=== PATIENT | female | born 1975 | race African-American/Black ===

== ENCOUNTER 2019-06-15 20:12 | Inpatient (IN) | payer SELFPAY ==
[2019-06-15] MEDS ORDERED: methylPREDNISolone NA SUCC 125 MG/2 ML VIAL ONE (20:17)
[2019-06-15] MEDS ORDERED: ALBUTEROL SO4 2.5/IPRATROPIUM 0.5 INH SOL 3 ML VIAL.NEB. NEB ONE (20:17)
[2019-06-15] MEDS ORDERED: MAGNESIUM SULF 50% (8.12 MEQ/2 ML-1 GM VIAL) IVPB ONE ×2 (20:20→20:30)
--- NOTE | 2019-06-15 20:22 | PDOC ---
Attending Attestation - Resident Resident Name: Sarah Mtaias - ED Attending Attestation I have performed the following: I have examined & evaluated the patient, The case was reviewed & discussed with the resident, I agree w/resident's findings & plan, Exceptions are as noted - HPI HPI: 06/15/19 22:42 Ms. Bolaños is a 43 yo F who presents to the ER via EMS secondary to shortness of breath Pt is clearly gravid History is obtained from the patient and her 22 year old daughter Pt recently found out that she is (between 1 and 2 weeks ago) She has noted lower extremity edema for WEEKS She has noted dyspnea on exertion and dizziness with standing TODAY she noted significant shortness of breath and congestion She has had a cough today and had severe difficulty breathing which prompted her to call EMS Upon their arrival, pt was given Albuterol which slightly improved her symptoms Pt transported to the ER - Physicial Exam PE: 06/15/19 21:01 GENERAL: The patient is in respiratory distress, HYPOXIC, TACHYPNEIC, DIAPHORETIC. HEAD: Normal EYES: PERRLA, EOMI, sclera anicteric, conjunctiva clear. ENT: Ears normal, nares patent, oropharynx clear without exudates. Dry mucous membranes. NECK: Normal range of motion, (+) JVD LUNGS: Rales/Crackles bilaterally HEART: Tachycardiac, no murmur appreciated ABDOMEN: Gravid abdomen, non tender Torres placed EXTREMITIES: (+) bilateral pitting edema NEUROLOGICAL: Cranial nerves II through XII grossly intact. Normal speech. No focal neurological deficits. no brisk reflexes MUSCULOSKELETAL: Back non-tender to palpation SKIN: No rashes seen 06/15/19 22:49 - Critical Care Time Total Critical Care Time: 180 Critical Care Statement: The care of this patient involved high complexity decision making to prevent further life threatening deterioration of the patient 's condition and/or to evaluate & treat vital organ system(s) failure or risk of failure. - Medical Decision Making 06/15/19 20:21 CALL PLACED TO L&D CASE REVIEWED WITH DR LUCAS Recommends: Bedside US to determine gestational age of fetus Orders placed Call placed to US for bedside US Attempting to obtain IV Mag ordered Will do Nitroglycerin as this is recommended in Acute Pulmonary Edema BIPAP initiated immediately DD in this patient includes: Pre ecclampsia, Cardiomyopathy, Acute Pulmonary Edema 06/15/19 21:[address] LUCAS is bedside to see this patient Shortness of breath and oxygenation vastly improved on BiPAP (100% O2 saturation ) Pt started on Nitroglycerin drip - started at 10mcg/kg/min, given a bolus of 200mcg with SBP improvement to 140s 06/15/19 21:23 Attempted to transfer this patient Case reviewed with Dr. Uribe He has reviewed this case with Dr Lucas He is refusing to accept this patient in transfer at this time Will admit to Dr Lucas She is requesting Labetolol instead of Nitroglycerine Torres cathether placed Call placed to Pharmacy to make Labetolol drip Anesthesia en route to see this patient in the ER May give Nitroprusside Awaiting their recommendation 06/15/19 21:[address] [facility] Dr. Lucas states pt just needs to be taken to the OR emergently Cancel transfer to OSH 06/15/19 21:49 Nitroprusside up from pharmacy Will hang it now Anesthesia bedside, he is placing an A line BP remains elevated Nitroprusside being titrated up 06/15/19 22:26 A line obtained Nitroprusside being titrated SBP 140s Nursing supervisor assembly room bedside States that patient should be transferred Call placed to [facility] (Again) Awaiting call from OB 06/15/19 22:33 MEDICATIONS GIVEN THUS FAR: NITROGLYCERINE BOLUS 200mcg and Drip at 10 mcg/min (x 30 minutes) LABETOLOL 20mg IV x 2 NITROPRUSSIDE started at 0.5mcg/kg/min titrated up to 2 mcg/kg/min MAGNESIUM 4gm IVPB MAGNESIUM DRIP CURRENTLY RUNNING: NITROPRUSSIDE 2mcg/kg/min NITROGLYCERINE 10 mcg/min CONSENT FOR C SECTION OBTAINED CONSENT FOR BLOOD OBTAINED 06/15/19 22:38 INTAKE: 250 cc (from MAgnesium) OUTPUT: 250 cc Urine 06/15/19 23:[address] Rowe, updates given Call placed to ICU Taken to OR Discharge - Discharge Information Problems reviewed: Yes Clinical Impression/Diagnosis: Hypertension affecting in third trimester Congestive heart failure Qualifiers: Heart failure type: unspecified Heart failure chronicity: unspecified Qualified Code(s): I50.9 - Heart failure, unspecified Pre-eclampsia Qualifiers: Trimester: third trimester Qualified Code(s): O14.93 - Unspecified pre- eclampsia, third trimester Condition: Guarded Disposition: TRANSFER ACUTE CARE/OTHER HOSP - Admission Yes - Follow up/Referral - Patient Discharge Instructions - Post Discharge Activity
[2019-06-15] MEDS ORDERED: LABETALOL HCL 5 MG/1 ML (100MG/20 ML VIAL) IVPUSH ONE ×3 (20:26→21:37)
[2019-06-15] MEDS ORDERED: RAPID SEQUENCE INTUBATION KIT NR ONE (20:27)
[2019-06-15] MEDS ORDERED: MAGNESIUM SULFATE 20GM/500ML - 20 GM/500 ML INFUS.BAG IVPB SCH (20:30)
[2019-06-15] MEDS ORDERED: NITROPRUSSIDE SODIUM 50,000 MCG in DEXTROSE 5%-WATER - 248 ML IVPB SCH ×2 (20:30→21:30)
[2019-06-15] MEDS ORDERED: NITROGLYCERIN 25MG/D5W 250ML 25 MG/250 ML ML IVPB ONE (20:30)
[2019-06-15] MEDS ORDERED: MAGNESIUM 4GM/H20 - 4 GM/100 ML IVPB IVPB SCH (20:30)
[2019-06-15] MEDS ORDERED: MAGNESIUM SULFATE IN WATER 2 GM/50 ML IVPB IVPB ONE (20:31)
[2019-06-15 20:39] LABS: BASO % 3.4 % (0-2.0); HEMATOCRIT 40.4 % (32.4-45.2); HEMOGLOBIN 12.8 GM/dL (10.7-15.3); LYMPH % 45.7 % (8-40); MCH 26.1 pg (25.7-33.7); MCHC 31.7 g/dl (32.0-36.0); MEAN CELL VOLUME 82.5 fl (80-96); MEAN PLT VOLUME 11.9 fl (7.5-11.1); MONO % 8.4 % (3.8-10.2); NEUT % 42.5 % (42.8-82.8); PLATELET COUNT 146 K/MM3 (134-434); RDW 25.6 % (11.6-15.6); WHITE BLOOD COUNT 8.9 K/mm3 (4.0-10.0)
[2019-06-15 20:51] VITALS: BMI 36.6
[2019-06-15 20:51] LABS: INR 0.87 (0.83-1.09); PROTHROMBIN TIME (PATIENT) 10.3 SEC (9.7-13.0)
[2019-06-15] MEDS ORDERED: NITROGLYCERIN 25MG/D5W 250ML 25 MG/250 ML ML IVPB SCH ×2 (21:00→22:30)
--- NOTE | 2019-06-15 21:02 | PDOC ---
History of Present Illness - General Chief Complaint: Respiratory Stated Complaint: DIFFICULTY BREATHING - History of Present Illness Initial Comments: Nini Bolaños is a 43yo woman with no known medical problems who was BIBA for acute onset of SOB at home. Per EMS, the pt was hypertensive to the 200/100's and hypoxic with sats in the 70's. They report that she is visibly but the pt did not realize she was until recently and has not received any care. The pt's daughter, Krissy, who arrived following the ambulance reports that she was first aware her mother was about a week ago. She says that her mother has been complaining of leg swelling, worsening back cramping, and worsening dizziness with standing for several weeks. The daughter confirms that the pt has not had any care, does not take vitamins, does not have any medical conditions or home medications, and does not drink, smoke, or use drugs that the daughter is aware of. Past History - Past Medical History Allergies/Adverse Reactions: Allergies Allergy/AdvReac Type Severity Reaction Status Date / Time almond Allergy Verified 06/15/19 20:28 Home Medications: Ambulatory Orders NK [No Known Home Medication] 06/15/19 - Psycho Social/Smoking Cessation Hx Smoking History: Unknown if ever smoked Have you smoked in the past 12 months: No Information on smoking cessation initiated: No Hx Alcohol Use: No Drug/Substance Use Hx: No Review of Systems - Review of Systems Comments:: Could not obtain 2/2 respiratory distress *Physical Exam - Vital Signs Last Vital Signs Temp Pulse Resp BP Pulse Ox 98.9 F 119 H 38 H 213/145 H 94 L 06/15/19 20:37 06/15/19 20:37 06/15/19 20:37 06/15/19 20:37 06/15/19 20:37 - Physical Exam General: Very uncomfortable, in respiratory distress HEENT: Atraumatic, PERRL, EOMI, MMM Cards: Tachycardic, no murmur appreciated Pulm: Tachypnic, hypoxic on RA, labored breathing, accessory muscle use, crackles in b/l bases Abd: Gravid near term, nontender : No vaginal bleeding. Vaginal exam deferred to OB Ext: Atraumatic. 2+ LE edema. ROM intact. Moves all extremities. WWP Skin: Normal color, no rashes or lesions Neuro: Awake, answers some yes/no questions, CN grossly intact, motor/sensory grossly intact and symmetric ED Treatment Course - LABORATORY CBC & Chemistry Diagram: 06/16/19 01:15 06/16/19 01:15 - ADDITIONAL ORDERS Additional order review: Laboratory Results 06/15/19 06/15/19 20:28 20:28 PT with INR 10.30 INR 0.87 Anti-A Titer Cancelled Blood Type Cancelled Antibody Screen Cancelled 06/15/19 20:28 RBC 4.90 MCV 82.5 MCHC 31.7 L RDW 25.6 H MPV 11.9 H Neutrophils % 42.5 L Lymphocytes % 45.7 H Monocytes % 8.4 Eosinophils % 0.0 Basophils % 3.4 H - Medications Given in the ED: ED Medications Discontinued Medications Generic Name Dose Route Start Last Admin Trade Name Freq PRN Reason Stop Dose Admin Labetalol HCl 20 mg 06/15/19 20:26 06/15/19 20:30 Normodyne Injection - IVPUSH 06/15/19 20:27 Not Given ONCE ONE Magnesium Sulfate 2 gm 06/15/19 20:20 06/15/19 20:15 Magnesium Sulfate IVPB 06/15/19 20:21 2 gm ONCE ONE Administration Magnesium Sulfate 2 gm 06/15/19 20:30 06/15/19 20:43 Magnesium Sulfate IVPB 06/15/19 20:31 2 gm ONCE ONE Administration Medical Decision Making - Medical Decision Making 06/15/19 20:55 Nini Bolaños is a 43yo woman, currently near term w/ no care, otherwise with no known medical problems who was BIBA for acute onset of SOB at home, HTN to 200/100's, noted to be tachypnic and hypoxic to the 70's on EMS arrival. Her daughter reports that the pt has been c/o worsening leg swelling, dizziness with standing, and back pain for several weeks. The daughter also reports that - Concerning for pre-eclampsia, HTN emergency - OB called on pt arrival as visibly . - US tech to bedside for ultrasound; Estimated gestation 37wks, wt 3100, FHR 165 - Pt with continued hypoxia to 70's on RA, BiPAP ordered emergently - CBC, CMP, coags, UA, UCx, T&S - POCUS lung/cardiac exam completed by Dr Abdul. B-lines diffusely. Small pericardial effusion - Nitro drip for pulm edema and HTN 06/15/19 21:21 - Seen by Dr Rosas. Recommending transfer for high-risk - Spoke to Dr Uribe (OB) at [place]. Refuses transfer as pt is unstable. Recommending emergent delivery - Labs pending - Pt now more alert, BP 170/130's 06/15/19 21:43 - OB called for evaluation 06/15/19 21:58 - BP 189/135 - A-line being placed by anesthesia for BP monitoring - Plan for emergent delivery as soon as BP is controlled - Nitroprusside drip started per anesthesia and OB recommendations. Initially 0.5mcg/kg/min. Will titrate to SBP under 160 06/15/19 22:24 - BP still 170-180's/100 on nitroprusside drip at 2.5mcg/kg/min and 1.5cc bolus - Will restart nitroglycerine drip at 10/min 06/15/19 22:36 - SBP now in 140's - Will admit to Dr Rosas for emergent Seen and discussed with Dr Kike Matias PGY2 Discharge - Discharge Information Problems reviewed: Yes Clinical Impression/Diagnosis: Hypertension affecting in third trimester Congestive heart failure Qualifiers: Heart failure type: unspecified Heart failure chronicity: unspecified Qualified Code(s): I50.9 - Heart failure, unspecified Pre-eclampsia Qualifiers: Trimester: third trimester Qualified Code(s): O14.93 - Unspecified pre- eclampsia, third trimester Condition: Guarded - Admission Yes - Follow up/Referral - Patient Discharge Instructions - Post Discharge Activity
--- NOTE | 2019-06-15 21:16 | HP ---
Past Medical History - Primary Care Physician PCP:: Arminda Rosas - Admission Chief Complaint: 43 yrs , no care brought by EMS with in ER c/o SOB , high BP 200/130 ,. no care pt is found to be in congedtive heart failure History of Present Illness: history obtained from her daughter pt c/o to her daughter about sob , she called ambulence she has been c/o headache on & off for 2 days sometimes she was c/o dizziness No care prior , LD 08/2015 home delivery , pt was taken to [facility] , she was in the hosp for 2-3 days no care during last also first pregn 01/1997 , 24 yrs ago pt does not go to the doctor for any medical care History Source: Patient, Medical Record Limitations to Obtaining History: No Limitations - Past Medical History FOOD CRITIC: No: Seizure Cardiovascular: Yes: HTN, Other (unknown) Pulmonary: Yes: Other (unknown) ...: 3 ...Para: 2 (G1 01/1997. G2 08/2015 ) ...Term: 2 Heme/Onc: Yes: Other (not known) Infectious Disease: Yes: Other (not known) Psych: Yes: Other (not known) Musculoskeletal: Yes: Other (not known) Endocrine: Yes: Other (not known) - Past Surgical History Past Surgical History: Yes: None Hx Myomectomy: No Hx Transabdominal Cerclage: No - Smoking History Smoking history: Unknown if ever smoked Have you smoked in the past 12 months: No - Alcohol/Substance Use Hx Alcohol Use: No Home Medications - Allergies Allergies/Adverse Reactions: Allergies Allergy/AdvReac Type Severity Reaction Status Date / Time almond Allergy Verified 06/15/19 20:28 - Home Medications Home Medications: Ambulatory Orders NK [No Known Home Medication] 06/15/19 Physical Exam - Maternity Vital Signs: Vital Signs Temperature 98.9 F 06/15/19 20:37 Pulse Rate 119 H 06/15/19 20:37 Respiratory Rate 38 H 06/15/19 20:37 Blood Pressure 213/145 H 06/15/19 20:37 O2 Sat by Pulse Oximetry (%) 94 L 06/15/19 20:37 Constitutional: Yes: Diaphoresis, Severe Distress HENT: Yes: WNL Neck: Yes: WNL Cardiovascular: Yes: WNL Lungs: Other (sob diaphoretic' bilateral rales) Breast(s): Yes: Other (nort examined) - Abdominal Exam/OB Fundal Height: 37 Number of Fetuses: Single Presentation: Vertex Contractions: No Monitor Mode: External Heart Rate (range): 160 Heart Rate Location: Midline Category: II (non reactive) Accelerations: None Decelerations: None - Vaginal Exam/OB Vaginal Bleediing: No Dilatation (cm): close Effacement (%): uneface Presentation: Vertex/Position Station: -4 - Physical Exam Extremities: Yes: Other (varicose veins prominent on inner thighs both extremities cold in lower trhird of legs & feet). No: Calf Tenderness Edema: LLE: 2+, RLE: 2+ Integumentary: Yes: Venous Stasis Changes, Other (Rt side large 3cm nodule firm , hyperpigmented , round , raised above skin) Deep Tendon Reflex Grade: Normal +2 - Labs Lab Results: CBC, BMP 06/15/19 20:28 Laboratory Tests 06/15/19 06/15/19 06/15/19 20:28 20:28 21:06 PT with INR 10.30 INR 0.87 Sodium 140 Potassium 4.5 Chloride 108 H Carbon Dioxide 19 L Anion Gap 13 Creatinine 1.3 Random Glucose 184 H Calcium 8.7 AST 41 H ALT 20 Alkaline Phosphatase 181 H Creatine Kinase 225 H Urine Protein 4+ H Urine Blood 2+ H Laboratory Tests 06/15/19 06/15/19 21:06 21:23 Opiates Screen Negative Methadone Screen Negative Barbiturate Screen Negative Ur Amphetamines Screen Negative MDMA (Ecstasy) Screen Negative Benzodiazepines Screen Negative Cocaine Screen Negative U Marijuana (THC) Screen Negative Blood Type A POSITIVE Antibody Screen Negative Problem List - Problems (1) 37 weeks gestation of Code(s): Z3A.37 - 37 WEEKS GESTATION OF (2) Hypertension affecting in third trimester Code(s): O16.3 - UNSPECIFIED MATERNAL HYPERTENSION, THIRD TRIMESTER (3) Hypertensive urgency Code(s): I16.0 - HYPERTENSIVE URGENCY (4) Pre-eclampsia Code(s): O14.90 - UNSPECIFIED PRE-ECLAMPSIA, UNSPECIFIED TRIMESTER Qualifiers: Trimester: third trimester Qualified Code(s): O14.93 - Unspecified pre- eclampsia, third trimester (5) Congestive heart failure Code(s): I50.9 - HEART FAILURE, UNSPECIFIED Qualifiers: Heart failure type: unspecified Heart failure chronicity: unspecified Qualified Code(s): I50.9 - Heart failure, unspecified (6) No care in current Code(s): O09.30 - SUPRVSN OF PREG W INSUFFICIENT ANTENAT CARE, UNSP TRIMESTER (7) AMA (advanced maternal age) multigravida 35+ Code(s): O09.529 - SUPERVISION OF ELDERLY MULTIGRAVIDA, UNSPECIFIED TRIMESTER Assessment/Plan bP control followed by delivery by prinary c/section [facility] called , refused transfer due to unstable condition . Hypeertension management as per ED , labetalol 20 mg iv push x2, followed by Nitrogglyceride followed by NItropruside MgSo4 4 gm followed by 2gm/hr given stablize BP deliver by c/section . pt understands , signed consent for c/s . keep pt on monitor in ED us by bed side 37 weeks di bains, efw 3113 gn post delivery transfer the pt to ICU
[2019-06-15 21:20] LABS: EPI CELLS 1.7 /HPF (0-5/HPF); HYALINE CASTS 22 /lpf (0-8); URINE APPEARANCE CLOUDY; URINE BACTERIA 38.5 /hpf (NEGATIVE); URINE BILIRUBIN NEGATIVE (NEGATIVE); URINE COLOR YELLOW; URINE GLUCOSE (UA) TRACE (NEGATIVE); URINE KETONE NEGATIVE (NEGATIVE); URINE LEUK ESTERASE NEGATIVE (NEGATIVE); URINE NITRITE NEGATIVE (NEGATIVE); URINE PROTEIN 4+ (NEGATIVE)
[2019-06-15 21:24] LABS: ALBUMIN 1.6 g/dl (3.4-5.0); BILIRUBIN,TOTAL 0.3 mg/dL (0.2-1); BLOOD UREA NITROGEN 13.6 mg/dL (7-18); CALCIUM 8.7 mg/dL (8.5-10.1); CREATININE 1.3 mg/dL (0.55-1.3); POTASSIUM 4.5 mmol/L (3.5-5.1); TOT PROT 6.2 g/dl (6.4-8.2)
[2019-06-15 21:25] LABS: COCAINE, UR NEGATIVE ng/ml (CUTOFF=300); METHADONE, UR NEGATIVE ng/ml (CUTOFF=300); OPIATES, URI NEGATIVE ng/ml (CUTOFF=300); PHENCYCLIDINE,URINE NEGATIVE ng/ml (CUTOFF=25); URINE AMPHETAMINES NEGATIVE ng/ml (CUTOFF=500); URINE BARBITURATES NEGATIVE ng/ml (CUTOFF=200); URINE BENZODIAZEPINES NEGATIVE ng/ml (CUTOFF=200)
[2019-06-15 22:29] LABS: ANISOCYTOSIS 3+; MACROCYTOSIS 2+; OVALOCYTE 1+; PLATELET ESTIMATE NORMAL
[2019-06-15] MEDS ORDERED: PROPOFOL 20 ML ONE (22:49)
[2019-06-15] MEDS ORDERED: SUCCINYLCHOLINE CHLORIDE 200 MG/10 ML SYRINGE ONE (22:50)
[2019-06-15] MEDS ORDERED: LIDO 2%/EPI 1:200000 PRESRVFRE (20 ML SDVIAL) ONE (22:54)
[2019-06-15] MEDS ORDERED: BUPIVACAINE HCL/PF 0.5% (5 MG/ML) 30 ML VIAL IJ ONE (22:54)
--- NOTE | 2019-06-15 23:37 | CONSULT ---
Consult Consult Specialty:: Nephrology Reason for Consultation:: HTN - History of Present Illness Chief Complaint: shortness of breath History of Present Illness: Pt is a 43 year old female who presents to the ER with shortness of breath. She recently found out that was about a week ago. She did not have any care. Her last was in 2016 and was a home delivery without care as well. She was found to be hypertensive. She also complained of lower ext edema. She was given albuterol by ems which helped her symptoms initially. In the ER she was put on a nitro drip, nitroprusside, magnesium and was given labetolol pushes. Tertiary care center was called for transfer and rejected the case. Pts blood pressure had improved. She was taken to the OR for urgent . Pt was intubated in the OR. Her blood pressure was labile intra-op. I was called to assist with bp management. I saw pt in ICU after all events noted. - History Source History Provided By: Family Member, Medical Record - Past Medical History YARN SIZER: No: Seizure Cardio/Vascular: Yes: HTN - Past Surgical History Past Surgical History: Yes: None - Alcohol/Substance Use Hx Alcohol Use: (Unknown) - Smoking History Smoking history: Unknown if ever smoked Have you smoked in the past 12 months: No Home Medications - Allergies Allergies/Adverse Reactions: Allergies Allergy/AdvReac Type Severity Reaction Status Date / Time almond Allergy Verified 06/15/19 20:28 - Home Medications Home Medications: Ambulatory Orders NK [No Known Home Medication] 06/15/19 Family Medical History Family History: Unable to Obtain Review of Systems Unable to obtain ROS, reason: pt intubated Physical Exam Vital Signs: Vital Signs Temperature 98.9 F 06/15/19 20:37 Pulse Rate 85 06/15/19 22:00 Respiratory Rate 36 H 06/15/19 21:10 Blood Pressure 189/135 H 06/15/19 22:00 O2 Sat by Pulse Oximetry (%) 99 06/15/19 21:10 Constitutional: Yes: Calm Eyes: Yes: Conjunctiva Clear HENT: Yes: Atraumatic Cardiovascular: Yes: S1, S2 Respiratory: Yes: Intubated, Mechanically Ventilated, Rhonchi Gastrointestinal: Yes: Other (dressing in place) Renal/: Yes: Torres Present Musculoskeletal: Yes: WNL Edema: Yes Edema: LLE: 2+, RLE: 2+ Neurological: Yes: Lethargy Labs: CBC, BMP 06/15/19 20:28 06/15/19 20:28 Laboratory Tests 06/15/19 06/15/19 20:28 21:06 Creatinine 1.3 Albumin 1.6 L Urine Protein 4+ H Urine Blood 2+ H Problem List - Problems (1) Hypertensive urgency Code(s): I16.0 - HYPERTENSIVE URGENCY (2) Proteinuria Code(s): R80.9 - PROTEINURIA, UNSPECIFIED (3) Proteinuria affecting in third trimester Code(s): O12.13 - GESTATIONAL PROTEINURIA, THIRD TRIMESTER (4) Pre-eclampsia Code(s): O14.90 - UNSPECIFIED PRE-ECLAMPSIA, UNSPECIFIED TRIMESTER Qualifiers: Trimester: third trimester Qualified Code(s): O14.93 - Unspecified pre- eclampsia, third trimester Assessment/Plan Current Medications Generic Name Dose Route Start Last Admin Trade Name Freq PRN Reason Stop Dose Admin Magnesium Sulfate 20 gm in 500 mls @ 25 mls/hr 06/15/19 20:30 06/15/19 20:15 Magnesium Sulfate 20gm/500ml - IVPB 25 mls/hr ASDIR RONALD Administration Labetalol HCl 1,000 mg/ 1,000 mls @ 60 mls/hr 06/15/19 21:30 Dextrose IV TITR RONALD 1 MG/MIN Sodium Nitroprusside 50,000 250 mls @ 14.96 mls/hr 06/15/19 21:30 06/15/19 22 :00 mcg/ Dextrose IVPB 0.38 mcg/kg/min TITR RONALD 11.6 mls/hr Administration Protocol 0.5 MCG/KG/MIN Nitroglycerin/Dextrose 25 mg in 250 mls @ 6 mls/hr 06/15/19 22:30 06/15/19 22 :35 Nitroglycerin 25mg/D5w 250ml IVPB 10 mcg/min TITR RONALD 6 mls/hr Administration 10 MCG/MIN Impression 1. pre-ecclampsia 2. htn 3. 4. proteinuria 5. elevated troponin 6. volume overload 7. resp failure requiring intubation Plan - agree with ICU monitoring - pt will be started on labetolol drip - cont bp monitoring via a-line - avoid hypotension - discussed with ICU team, they will manage bp - lasix for fluid overload - check cxr - ICU team to call [facility] to evaluate for transfer - monitor renal function - repeat ua in am - repeat prt to secondary teacher ratio - cont mag drip - trend cardiac enzymes - cardio eval - medical eval - monitor urine output - check formal echo - vent support
[2019-06-15] MEDS ORDERED: VECURONIUM BROMIDE 10 MG VIAL ONE (23:46)
[2019-06-15] MEDS ORDERED: ePHEDrine SULFATE 50 MG/1 ML AMPULE ONE (23:52)
[2019-06-16] MEDS ORDERED: ceFAZolin SODIUM 1 GM VIAL IVPB ONE (00:04)
[2019-06-16] MEDS ORDERED: ceFAZolin SODIUM 1 GM VIAL ONE ×2 (00:05→02:24)
[2019-06-16] MEDS ORDERED: MIDAZOLAM HCL 2 MG/2 ML SINGLE DOSE VIAL ONE ×3 (00:27)
[2019-06-16] MEDS ORDERED: OXYTOCIN 10 UNITS/ML VIAL ONE (00:31)
[2019-06-16] MEDS ORDERED: ACETAMINOPHEN 325 MG TABLET (FP) PO PRN (00:50)
[2019-06-16] MEDS ORDERED: BENZOCAINE 28 GM HEMORRHOIDAL OINTMENT TP PRN (00:50)
[2019-06-16] MEDS ORDERED: oxyCODONE HCL 5 MG TABLET PO PRN ×2 (00:50)
[2019-06-16] MEDS ORDERED: BENZOCAINE 20% 57 GM BOTTLE TP PRN (00:50)
[2019-06-16] MEDS ORDERED: SIMETHICONE 80 MG TAB.CHEW (FP) PO PRN (00:50)
[2019-06-16] MEDS ORDERED: ACETAMINOPHEN 1000 MG/100 ML VIAL (NON FORMULARY) IVPB PRN (00:54)
[2019-06-16] MEDS ORDERED: OXYTOCIN 20 UNITS in 0.9% NS 20 UNIT/1,000 ML INFUS.BAG IV SCH (01:00)
[2019-06-16] MEDS ORDERED: FUROSEMIDE 40 MG/4 ML INJECTABLE VIAL ONE (01:04)
[2019-06-16] MEDS ORDERED: LABETALOL HCL 5 MG/1 ML (100MG/20 ML VIAL) IVPUSH ONE (01:04)
[2019-06-16] MEDS ORDERED: LABETALOL HCL 5 MG/1 ML (100MG/20 ML VIAL) ONE (01:04)
--- NOTE | 2019-06-16 01:20 | PN ---
Delivery - Delivery Section: Primary, Low Flap Transverse (37 weeks , Hypertensive emergency , preclempsia , ccf) Type of Anesthesia: General Episiotomy/Laceration: None EBL (cc): 900 (intra op 50 ml urine ) Delivery, Single - Stages of Labor Date of Delivery: 06/15/19 Time of Delivery: 23:42 Time Placenta Delivered: 23:45 Placenta: Yes: Manual Removal, Uterine Exploration (large uterus with fibroids) - Condition of Infant Validation Software Facilitator/Certified Dental Assistant Present: Yes Name: Letitia Gooden Infant Gender: Female Weight: 6 lb Total Hours ROM (Hrs/Mins): 3min meconium - 1 Minute Total Score: 2 5 Minutes Total Score: 2 10 Minutes Total Score: 6 15 Minutes Total Score: 7 Remarks - Remarks Remarks: 43 yrs , no care presented with sob, pregn known , 37 weeks by bed side us pt managed by ED for hypertnsive emergency with preclempsia on IV Nitroglyceride , followed by IV Notroprusied MgSo4 IV 4gm loading dose followed by 2gm/hr A line placed by anesthesiologist 2 gm iv ancef intraop given pt transferred to ICU BP management by [facility] Dr Soledad Jackson , on iv labetalol drip IV MgSo4 post op will be started Selected Entries 06/16/19 01:25 Temperature 97.2 F L Pulse Rate 71 Pulse Rhythm [ Regular Both Dorsalis Pedis] Respiratory 16 Rate Respiratory Mechanically Effort Ventilated Blood Pressure 148/100 O2 Sat by Pulse 100 Oximetry (%) Oxygen Delivery Endotracheal Method tube Weight 220 lb 2.00 AM : pt is sedated , intubated , on ventilator for resp support O2 sat 96 % , Pulse 81, BP 143/103 u/output 50ml/hr i/o 1050/900 ct management as per icu attempting to transfer care to tertiary center
--- NOTE | 2019-06-16 01:25 | OP ---
Operative Note - Note: Operative Date: 06/15/19 Pre-Operative Diagnosis: 37 weeks, hypertensive emergency, preclempsia Operation: primary lftc/s Findings: baby born 23.42 hr 06/15/19 , lot position, AF moderatelly thick , girl , 2 /2--6/7 wt 6lbs huge large ut with fibroids both tubes & ovaries normal Dr Dong present in OR Surgeon: Arminda Rosas Front End Wheel Loader Operator: Carlos A Wagner Anesthesiologist/ELECTRICAL REPAIRER: Anisa Chong Anesthesia: General Specimens Removed: cord segment for cord gas. cord blood. placenta Estimated Blood Loss (mls): 900 Drains, Volume Out (mls): 50 (walter out put ) Fluid Volume Replaced (mls): 900 (2 gm iv ancef ) Operative Report Dictated: Yes
[2019-06-16] MEDS ORDERED: PROPOFOL 1,000,000 MCG/100 ML VIAL ONE (01:38)
[2019-06-16 01:45] LABS: ARTERIAL BLD GAS O2 SATURATION 90.9 % (95-98); ARTERIAL BLOOD GAS BASE EXCESS -8.6 meq/l (-2-2)
[2019-06-16] MEDS: LABETALOL HCL INJECTION 1,000 MG in DEXTROSE 5%-WATER - 800 ML IV SCH ×2 (01:45→04:32)
[2019-06-16] MEDS ORDERED: PROPOFOL 1,000,000 MCG/100 ML VIAL IVPB SCH (01:45)
[2019-06-16 01:54] LABS: HEMATOCRIT 35.6 % (32.4-45.2); HEMOGLOBIN 11.1 GM/dL (10.7-15.3); MCHC 31.3 g/dl (32.0-36.0); MEAN CELL VOLUME 83.2 fl (80-96); MEAN PLT VOLUME 11.7 fl (7.5-11.1); PLATELET COUNT 106 K/MM3 (134-434); RBC 4.28 M/mm3 (3.60-5.2); RDW 25.3 % (11.6-15.6); WHITE BLOOD COUNT 16.3 K/mm3 (4.0-10.0)
[2019-06-16] MEDS ORDERED: MAGNESIUM SULFATE 20GM/500ML - 20 GM/500 ML INFUS.BAG IVPB SCH (02:00)
[2019-06-16] MEDS ORDERED: CEFAZOLIN 1 GM in DEXTROSE 5%-WATER - 50 ML IVPB SCH (02:00)
[2019-06-16 02:09] LABS: INR 0.89 (0.83-1.09); PROTHROMBIN TIME (PATIENT) 10.5 SEC (9.7-13.0)
--- NOTE | 2019-06-16 02:10 | CONSULT ---
Consult Consult Specialty:: Pulmonary critical care Reason for Consultation:: preeclampsia, hypoxic respiratory failure - History of Present Illness Chief Complaint: SOB, cough, LE edema History of Present Illness: This is a 43 yo woman who presented to the ED w/ severe SOB and LE edema. She was found to be preeclamptic w/ SBP 220s now s/p transferred to ICU for continued care. 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 She has received no care. He has two other children one 22yo and another 2yo. On the day of ED admission she developed worsening SOB w/ cough prompting activation of EMS. In the ED OB was consulted (Dr. Lamb). There was an attempt to transfer patient to [facility] ([facility]) but given the instability of the patient she was denied. She was placed on nitroprusside drip for BP control. Arterial line was placed. SBP 220s. NIPPV placed for hypoxia. Labs w/ proteinuria. UTOX: negative. She was taken to the OR and a was performed under general anesthesia. She remained on nitroprusside w/ prn pushes of labetalol during the case. Post-op she was transferred to ICU. On arrival to ICU patient intubated and sedated. BP: 220s/140s. She was placed on ACVC 14/400/100 +5. AB.2/53/85. P:F 85. Pplat: 20. PEEP increased to 12. Exam notable for coarse crackles throughout lung saxena. Renal attending bedside. Lasix IVP given. STAT labs sent. I reached out to [facility] post-op given continued HTN and hypoxic respiratory failure. The case was accepted. Labetalol drip was started for BP control. Pt sedated w/ propofol. 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 Cardio/Vascular: Yes: HTN, Other (unknown) Pulmonary: Yes: Other (unknown) ...: (s/p c section) Infectious Disease: Yes: Other (not known) Psych: Yes: Other (not known) Musculoskeletal: Yes: Other (not known) Endocrine: Yes: Other (not known) - Past Surgical History Past Surgical History: Yes: None - Alcohol/Substance Use Hx Alcohol Use: No - Smoking History Smoking history: Unknown if ever smoked Have you smoked in the past 12 months: No Home Medications - Allergies Allergies/Adverse Reactions: Allergies Allergy/AdvReac Type Severity Reaction Status Date / Time almond Allergy Verified 06/15/19 20:28 - Home Medications Home Medications: Ambulatory Orders NK [No Known Home Medication] 06/15/19 Family Medical History Family History: Unable to Obtain Review of Systems Unable to obtain ROS, reason: intubation Physical Exam Vital Signs: Vital Signs Temperature 97.2 F L 06/16/19 01:25 Pulse Rate 100 H 06/16/19 01:49 Respiratory Rate 22 H 06/16/19 01:49 Blood Pressure 148/100 06/16/19 01:25 O2 Sat by Pulse Oximetry (%) 96 06/16/19 01:49 Constitutional: Yes: Other (Intubated and sedated w/o distress) Eyes: Yes: Conjunctiva Clear, PERRL Neck: Yes: Trachea Midline Cardiovascular: Yes: Regular Rate and Rhythm, S1, S2 Respiratory: Yes: Mechanically Ventilated, Rales (bilateral t/o all lung saxena) Gastrointestinal: Yes: Other (palpable uterus, surgical site c/d/i) ...Rectal Exam: Yes: Deferred Renal/: Yes: Torres Present, Vaginal Bleeding (mild bleeding noted) Edema: LLE: 1+, RLE: 1+ Wound/Incision: Yes: Clean/Dry, Dressing Dry and Intact Neurological: Yes: Other (RASS -4) Labs: ABG Results ABG pH 7.20 (7.35-7.45) L 06/16/19 01:20 ABG pCO2 at Pt Temp 53.0 mmHg (35-45) H 06/16/19 01:20 ABG pO2 at Pt Temp 85.0 mmHg (80-100) 06/16/19 01:20 ABG HCO3 19.8 mmol/L (22-27) L 06/16/19 01:20 ABG O2 Sat (Measured) 90.9 % (95-98) L 06/16/19 01:20 ABG O2 Content 19.0 % vol 06/16/19 01:20 ABG Base Excess -8.6 meq/l (-2-2) L 06/16/19 01:20 WBC 16.3 K/mm3 (4.0-10.0) H 06/16/19 01:15 RBC 4.28 M/mm3 (3.60-5.2) 06/16/19 01:15 Hgb 11.1 GM/dL (10.7-15.3) 06/16/19 01:15 Hct 35.6 % (32.4-45.2) 06/16/19 01:15 MCV 83.2 fl (80-96) 06/16/19 01:15 MCH 26.0 pg (25.7-33.7) 06/16/19 01:15 MCHC 31.3 g/dl (32.0-36.0) L 06/16/19 01:15 RDW 25.3 % (11.6-15.6) H 06/16/19 01:15 Plt Count 106 K/MM3 (134-434) L D 06/16/19 01:15 MPV 11.7 fl (7.5-11.1) H 06/16/19 01:15 Absolute Neuts (auto) 3.8 K/mm3 (1.5-8.0) 06/15/19 20:28 Neutrophils % 42.5 % (42.8-82.8) L 06/15/19 20:28 Lymphocytes % 45.7 % (8-40) H 06/15/19 20:28 Monocytes % 8.4 % (3.8-10.2) 06/15/19 20:28 Eosinophils % 0.0 % (0-4.5) 06/15/19 20:28 Basophils % 3.4 % (0-2.0) H 06/15/19 20:28 Nucleated RBC % 0 % (0-0) 06/15/19 20:28 Platelet Estimate Normal 06/15/19 20:28 Platelet Comment No clumping noted 06/15/19 20:28 Polychromasia 1+ 06/15/19 20:28 Anisocytosis 3+ 06/15/19 20:28 Macrocytosis 2+ 06/15/19 20:28 Ovalocytes 1+ 06/15/19 20:28 Sodium 140 mmol/L (136-145) 06/15/19 20:28 Potassium 4.5 mmol/L (3.5-5.1) 06/15/19 20:28 Chloride 108 mmol/L (98-107) H 06/15/19 20:28 Carbon Dioxide 19 mmol/L (21-32) L 06/15/19 20:28 Anion Gap 13 MMOL/L (8-16) 06/15/19 20:28 BUN 13.6 mg/dL (7-18) 06/15/19 20:28 Creatinine 1.3 mg/dL (0.55-1.3) 06/15/19 20:28 Est GFR (CKD-EPI)AfAm 59.01 06/15/19 20:28 Est GFR (CKD-EPI)NonAf 50.91 06/15/19 20:28 Random Glucose 184 mg/dL (74-106) H 06/15/19 20:28 Uric Acid 8.0 mg/dL (2.6-7.2) H 06/15/19 20:28 Calcium 8.7 mg/dL (8.5-10.1) 06/15/19 20:28 Total Bilirubin 0.3 mg/dL (0.2-1) 06/15/19 20:28 GGT 50 U/L (5-85) 06/15/19 20:28 AST 41 U/L (15-37) H 06/15/19 20:28 ALT 20 U/L (13-61) 06/15/19 20:28 Alkaline Phosphatase 181 U/L (45-117) H 06/15/19 20:28 Creatine Kinase 225 U/L (26-192) H 06/15/19 20:28 Creatine Kinase Index 1.2 % (0.0-5.0) 06/15/19 20:28 CK-MB (CK-2) 2.9 ng/mL (0.5-3.6) 06/15/19 20:28 Troponin I 0.20 ng/ml (0.00-0.05) H 06/15/19 20:28 Total Protein 6.2 g/dl (6.4-8.2) L 06/15/19 20:28 Albumin 1.6 g/dl (3.4-5.0) L 06/15/19 20:28 Beta HCG, Quant 77984.4 mIU/ml 06/15/19 20:28 Urine Test Results Urine Color Yellow 06/15/19 21:06 Urine Appearance Cloudy 06/15/19 21:06 Urine pH 7.0 (5.0-8.0) 06/15/19 21:06 Ur Specific [place] 1.014 (1.010-1.035) 06/15/19 21:06 Urine Protein 4+ (NEGATIVE) H 06/15/19 21:06 Urine Glucose (UA) Trace (NEGATIVE) 06/15/19 21:06 Urine Ketones Negative (NEGATIVE) 06/15/19 21:06 Urine Blood 2+ (NEGATIVE) H 06/15/19 21:06 Urine Nitrite Negative (NEGATIVE) 06/15/19 21:06 Urine Bilirubin Negative (NEGATIVE) 06/15/19 21:06 Ur Leukocyte Esterase Negative (NEGATIVE) 06/15/19 21:06 Imaging - Results Chest X-ray: Pending Problem List - Problems (1) 37 weeks gestation of Code(s): Z3A.37 - 37 WEEKS GESTATION OF (2) AMA (advanced maternal age) multigravida 35+ Code(s): O09.529 - SUPERVISION OF ELDERLY MULTIGRAVIDA, UNSPECIFIED TRIMESTER (3) Congestive heart failure Code(s): I50.9 - HEART FAILURE, UNSPECIFIED Qualifiers: Heart failure type: unspecified Heart failure chronicity: unspecified Qualified Code(s): I50.9 - Heart failure, unspecified (4) Hypertension affecting in third trimester Code(s): O16.3 - UNSPECIFIED MATERNAL HYPERTENSION, THIRD TRIMESTER (5) Hypertensive urgency Code(s): I16.0 - HYPERTENSIVE URGENCY (6) No care in current Code(s): O09.30 - SUPRVSN OF PREG W INSUFFICIENT ANTENAT CARE, UNSP TRIMESTER (7) Pre-eclampsia Code(s): O14.90 - UNSPECIFIED PRE-ECLAMPSIA, UNSPECIFIED TRIMESTER Qualifiers: Trimester: third trimester Qualified Code(s): O14.93 - Unspecified pre- eclampsia, third trimester (8) Proteinuria Code(s): R80.9 - PROTEINURIA, UNSPECIFIED Assessment/Plan a/p: 43 yo woman w/ SOB, LE edema found to be preeclamptic w/ SBP 220s now s/p emergent w/ continued HTN c/f HTN c/b hypoxic respiratory failure w/ P:F ratio 85 c/w severe ARDS -Mechanical ventilation w/ Low TV Ventilation per ARDS net protocol --IBW 57: 6cc/kg 342, currently at 7cc/kg given acidosis will wean for goal Pplat <25 -FiO2 and PEEP for sat >90 -sedation for vent synchrony -daily awakenings and breathing trials once stable -CXR pending -lasix for O>I -STAT labs sent including LDH, LFTs, cardiac enzymes -ECHO -Cardiology consult -Labetalol drip for goal SBP: 140-160 -cont magnesium drip 1gm/hr -arterial line for BP monitoring -pitocin infusion per OB -ceftriaxone per OB -monitor bleeding at surgical site -DVT/GI prophylaxis -given continued HTN, and hypoxic respiratory failure and risk for HTN/eclampsia and possible cardiomyopathy contributing to hypoxic respiratory failure we will transfer to [facility] JACK. Jaylene ACNP Pulm/CCM CCT: 60m
[2019-06-16 02:12] VITALS: TEMP 97.3
[2019-06-16 02:12] LABS: ACTIVATED PTT 28.3 SECONDS (25.2-36.5)
[2019-06-16] MEDS ORDERED: DEXTROSE 5%-WATER - 50 ML IVPB ONE (02:24)
[2019-06-16 02:55] LABS: ALBUMIN 1.5 g/dl (3.4-5.0); ALK PHOS 150 U/L (45-117); ANION GAP 9 MMOL/L (8-16); BILIRUBIN,DIRECT 0.1 mg/dL (0.0-0.2); BILIRUBIN,TOTAL < 0.1 mg/dL (0.2-1); BLOOD UREA NITROGEN 16.6 mg/dL (7-18); CALCIUM 7.7 mg/dL (8.5-10.1); CHLORIDE 109 mmol/L (98-107); CO2 22 mmol/L (21-32); CREATININE 1.2 mg/dL (0.55-1.3); GLUCOSE,RANDOM 149 mg/dL (74-106); LDH 596 U/L (84-246); MAGNESIUM 3.5 mg/dL (1.8-2.4); PHOSPHOROUS 4.9 mg/dL (2.5-4.9); POTASSIUM 4.2 mmol/L (3.5-5.1); SGOT/AST 29 U/L (15-37); SGPT/ALT 16 U/L (13-61); SODIUM 139 mmol/L (136-145); TOT PROT 5.1 g/dl (6.4-8.2)
[2019-06-16 05:22] VITALS: BP 135/102; PULSE 76
[2019-06-16] MEDS ORDERED: FAMOTIDINE 20 MG/50 ML IVPB 20 MG/50 ML MG IVPB SCH (10:00)
--- NOTE | 2019-06-16 12:06 | DS ---
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 Vital Signs: Vital Signs Temperature 97.3 F L 06/16/19 01:54 Pulse Rate 76 06/16/19 05:00 Respiratory Rate 22 H 06/16/19 05:00 Blood Pressure 135/102 H 06/16/19 05:00 O2 Sat by Pulse Oximetry (%) 100 06/16/19 03:00 Constitutional: Yes: Severe Distress, Other (on mechanicl ventilator support for resp failure) HENT: Yes: Other (sedated) Cardiovascular: Yes: Other (echo done) Respiratory: Yes: Mechanically Ventilated (trponin elevated , suspect cardiomyopathy), Rales (chest xray report coarsr lung changes in Rt base lung, may be infiltrate or atelactasis, endotracheal tube in place), Other Gastrointestinal: Yes: WNL Renal/: Yes: Other (walter in place, post op 625 ml elias color urine) ....Post : Yes: Uterus firm (above umblicus), Moderate lochia rubra Breast(s): Yes: Other (not examined) Extremities: Yes: Other (scd in situ) Edema: LLE: 2+, RLE: 2+ Neurological: Yes: Other (sedated with propofol) Labs: CBC, BMP 06/16/19 01:15 06/16/19 01:15 Laboratory Tests 06/15/19 21:06 Protein/Creatinin Ratio 29.8 Delivery - Delivery Section: Primary, Low Flap Transverse (37 weeks , Hypertensive emergency , preclempsia , ccf) Type of Anesthesia: General Episiotomy/Laceration: None EBL (cc): 900 (intra op 50 ml urine ) Delivery, Single - Stages of Labor Date of Delivery: 06/15/19 Time of Delivery: 23:42 Time Placenta Delivered: 23:45 Placenta: Yes: Manual Removal, Uterine Exploration (large uterus with fibroids) - Condition of Event Specialist/Midlevel Provider Present: Yes Name: Letitia Gooden Infant Gender: Female Weight: 6 lb Position: Left, OT Total Hours ROM (Hrs/Mins): 3min meconium - 1 Minute Total Score: 2 5 Minutes Total Score: 2 10 Minutes Total Score: 6 15 Minutes Total Score: 7 Remarks - Remarks Remarks: 43 yrs , no care presented with sob, pregn known , 37 weeks by bed side us pt managed by ED for hypertnsive emergency with preclempsia , iv labetalol 20 mg x2 followed by on IV Nitroglyceride , followed by IV Notroprusied MgSo4 IV 4gm loading dose followed by 2gm/hr A line placed by anesthesiologist 2 gm iv ancef intraop given pt transferred to ICU BP management by [facility] Soledad Jackson , on iv labetalol drip IV MgSo4 post op will be started Selected Entries 06/16/19 01:25 Temperature 97.2 F L Pulse Rate 71 Pulse Rhythm [ Regular Both Dorsalis Pedis] Respiratory 16 Rate Respiratory Mechanically Effort Ventilated Blood Pressure 148/100 O2 Sat by Pulse 100 Oximetry (%) Oxygen Delivery Endotracheal Method tube Weight 220 lb 2.00 AM : pt is sedated , intubated , on ventilator for resp support O2 sat 96 % , Pulse 81, BP 143/103 u/output 50ml/hr i/o 1050/900 ct management as per icu attempting to transfer care to tertiary center post op 40 mg iv labetalo followed by titration Iv labetalol drip transferred at 5.25 AM to [facility] Note : infant doing better in 3 C Nursery, was extubated , only on nasal o2 , active Discharge Summary Problems reviewed: Yes Reason For Visit: CONGESTIVE HEART FAILURE, PRE-ECLAMPSIA, s/a Procedures: Principal: ac hypertensive , emergency management. primary c/ section. resp failure management with ventilator Hospital Course: critical Health Concerns: as above Plan of Treatment: transfered to [facility] for critical management Condition: Guarded - Instructions Disposition: TRANSFER ACUTE CARE/OTHER HOSP - Home Medications Comprehensive Discharge Medication List: Ambulatory Orders NK [No Known Home Medication] 06/15/19
[2019-06-16] MEDS ORDERED: ENOXAPARIN NA (PORCINE) 40 MG/0.4 ML DISP.SYRIN SQ SCH (16:00)
--- NOTE | 2019-06-16 17:43 | OP ---
DATE OF OPERATION: 06/15/2019 PREOPERATIVE DIAGNOSES: 37 weeks , hypertensive emergency, preeclampsia. OPERATION DONE: Primary low-flap transverse section. SURGEON: Arminda Rosas MD OUTPATIENT PHARMACY MANAGER SURGEON: DYLAN MEJIA ANESTHESIOLOGIST: Anisa Chong MD ANESTHESIA: General. METAL OR WOOD BLOCKER: Letitia Gooden MD FINDINGS: This is a 43-year-old, 3, para 2-0-0-2, has no care, presents with shortness of breath, known to have a , 37 weeks gestation. Patient was in respiratory failure, blood pressure was 213/145. pt was placed on BiPAP , Blood pressure management was done with iv labetalol followed by IV nitroglycerin, IV nitroprusside, and magnesium sulfate. walter was placed, scd were applied . Bed side us , 37 weeks gestation, vx , tim 16. Once the blood pressure stabilized, patient was taken to the operating room for a section. Cervix was closed. Not in labor. The heart rate was 145 and nonreactive tracing. PROCEDURE: The patient is taken to the operating room table. Abdomen was shaved, prepped. SCD stockings, in situ Walter in place. Abdomen was painted and draped in the usual manner and then general anesthesia was given. Then a Pfannenstiel incision was made through skin and subcutaneous tissue. Anterior rectus sheath was incised transversely. Bleeding points were clamped and cauterized. Rectus muscle was from the rectus sheath. Parietal peritoneum was opened vertically. Lower flap parietal peritoneum was incised transversely, the lower uterine segment was incised transversely, and the baby girl was delivered at 2342 hours from LOT position. Baby's Apgars were, at 1 minute, 2; at 5 minutes, 2; at 10 minutes, 6 ; and at 15 minutes, 7. Baby girl was taken care by the veterinarian laboratory animal care, Dr. Letitia Gooden. Cord was clamped, cut, cord blood was collected. Cord segment was sent for cord blood gas. Placenta was removed completely with the membrane. The uterus was very large and multiple fibroids were noted, intramural fibroids. One was just above the midline of the incision. Then the uterine cavity was cleaned and the uterus was closed in 2 layers, uterine incision. The first layer was a continuous locking with Biosyn 0 suture, second layer was a continuous intermittent locking with a Biosyn suture. Hemostasis was noted. The bladder peritoneum was closed with a Biosyn 0 suture. Both tubes and ovaries were normal. Irrigation was done and then the closure of the abdomen was done. Parietal peritoneum was closed with a Vicryl 0 suture. Muscles were approximated with interrupted sutures. Then underneath the rectus sheath flap, hemostasis was noted. Rectus sheath was closed with a Vicryl 0 suture. Hemostasis noted again. Subcutaneous tissue approximated with interrupted 2-0 Vicryl suture. Hemostasis checked in subcutaneous tissue. Skin was approximated with jordyn. Patient tolerated procedure well, transferred to the ICU with intubation and she will be placed on IV labetalol drip and magnesium sulfate postoperatively. Blood loss was 900 mL. IV fluid was given, 900 mL, 2 g of IV Ancef was given. The urine output intraoperatively was 50 mL and it was elias color. Blood clots were removed from the vagina. Omero [id number] MTDD
[2019-06-17] MEDS ORDERED: BISACODYL 10 MG SUPP.RECT RC PRN (00:50)
[2019-06-17] MEDS ORDERED: PRENATAL VITAMINS W/ FOLIC ACID TABLET (FP) PO SCH (10:00)
[2019-06-17] MEDS ORDERED: FERROUS SO4 325 MG TABLET (FP) PO SCH (22:00)
--- NOTE | 2019-06-24 16:07 | PATH ---
Surgical Pathology Report Patient Name: MARÍA CELIS [facility]. Rec. #: [id number] /Age/Gender: 1975 (Age: 43) / F Account: [id number] Location: [facility] ART COORDINATOR Taken: 06/15/2019 Received: 06/17/2019 Reported: 06/24/2019 Physicians: Arminda Rosas M.D. Specimen(s) Received PLACENTA Clinical History Final Diagnosis PLACENTA, SECTION: 507 G THIRD TRIMESTER PLACENTA WITH TRIVASCULAR UMBILICAL CORD, FOCAL INTRAPARENCHYMAL INFARCT (~ 30% OF PLACENTAL SURFACE), AND UNREMARKABLE PLACENTAL MEMBRANES. Electronically Signed Shanice Reed M.D. Gross Description The specimen is received fresh labeled placenta and is a 507 gram, 21.0 x 16.0 x 2.0 cm. placenta with attached membranes and umbilical cord. The attached membranes are bhagat, translucent with focal opacities and insert marginally. The umbilical cord measures 19 cm. in length and averages 1.1 cm. in diameter. The cord inserts eccentrically, 6.5 cm. to the nearest margin. No true knots or strictures are identified. Cut surface of the umbilical cord reveals 3 vessels. The surface is rojas blue with moderate fibrin deposition and appropriate caliber vessels. The maternal surface is red-brown with focal defects. Sectioning reveals a 7 cm in greatest dimension bhagat, firm intraparenchymal lesion. The remaining placental parenchyma is red-brown and spongy. Veneer Sheet Repairer sections are submitted in 4 cassettes as follows: 1-membrane roll and umbilical cord; 2-3-lesion; 4-sales representative graphic art full-thickness section of placenta. 06/21/2019 [facility]06/21/2019
--- NOTE | 2019-07-10 15:09 | EKG ---
Test Reason : Blood Pressure : / mmHG Vent. Rate : 112 BPM Atrial Rate : 112 BPM P-R Int : 142 ms QRS Dur : 078 ms QT Int : 372 ms P-R-T Axes : 039 -13 059 degrees QTc Int : 507 ms SINUS TACHYCARDIA POSSIBLE LEFT ATRIAL ENLARGEMENT LEFT VENTRICULAR HYPERTROPHY NONSPECIFIC ST AND T WAVE ABNORMALITY ABNORMAL ECG NO PREVIOUS ECGS AVAILABLE Confirmed by KONRAD TILLEY MD ([id number]) on 07/10/2019 3:09:13 PM Referred By: Confirmed By:KONRAD TILLEY MD
== END 2019-06-16 05:30 | disposition short-term general hospital (02) | DRG 540 ==
LOC: JER 20:12 → JERBED 22:40 → JICU 06-16 01:01
PROVIDERS: ADMIT Obstetrics & Gynecology; ATTEND Obstetrics & Gynecology
PROC: 5A1935Z Respiratory Ventilation, Less than 24 Consecutive Hours (ICD-10-PCS; 2019-06-15)
PROC: 0BH17EZ Insertion of Endotracheal Airway into Trachea, Via Natural or Artificial Opening (ICD-10-PCS; 2019-06-15)
PROC: 10D00Z1 Extraction of Products of Conception, Low, Open Approach (ICD-10-PCS; principal; 2019-06-15 23:00)
DX: O11.3 Pre-existing hypertension with pre-eclampsia, third trimester (principal); O99.52 Diseases of the respiratory system complicating childbirth; I50.9 Heart failure, unspecified; J96.01 Acute respiratory failure with hypoxia; I16.1 Hypertensive emergency; O09.30 Supervision of pregnancy with insufficient antenatal care, unspecified trimester; Z3A.37 37 weeks gestation of pregnancy; O99.42 Diseases of the circulatory system complicating childbirth; I42.9 Cardiomyopathy, unspecified; I16.0 Hypertensive urgency; Z37.0 Single live birth
CPT/HCPCS: 36415; 36600; 71045-TC-FY; 76815-TC; 80048; 80053; 80076; 80307; 81003; 82550; 82553; 82570; 82803; 82977; 83036; 83605; 83615; 83735; 84100; 84156; 84443; 84484; 84550; 84702; 85025; 85027; 85384; 85610; 85730; 86850; 86900; 86901; 87040; 87086; 87389; 88307-TC; 93005; 93010; 94002; 99285-25